=== PATIENT | female | born 1935 ===

== ENCOUNTER 2016-12-30 20:38 | Inpatient (IN) | payer OTHER ==
[~2016-12-30] VITALS: Ht 165.1 cm; Wt 96.4 kg
[2016-12-30 20:45] VITALS: BP 182/82; PULSE 74; TEMP 37; O2SAT 92; Ht 165.1 cm; Wt 96.4 kg
[2016-12-30] MEDS ORDERED: ASPCH81X PO (21:40)
[2016-12-30] MEDS ORDERED: LOSA1TAB38 PO (21:40)
[2016-12-30] MEDS ORDERED: SIMV20TA2 PO (21:40)
[2016-12-30] MEDS ORDERED: [UNRECOGNIZED DRUG - CODE] OR (21:40)
[2016-12-30] MEDS ORDERED: GLC/500 PO (21:40)
[2016-12-30] MEDS ORDERED: METO-217 PO (21:40)
[2016-12-30] MEDS ORDERED: PATIENT'S ALLERGY INFO NEEDS ENTERED SCH (22:15)
[2016-12-30] MEDS ORDERED: MECLIZINE HCL 25 MG TAB PO STA (22:34)
[2016-12-30] MEDS ORDERED: NURSING VERBAL MED ORDER ONE (23:00)
[2016-12-30 23:05] LABS: BASO % 0.2 %; BASO ABS # 0.02 K/uL (0-0.2); EOS % 0.1 %; HEMATOCRIT 38.2 % (37-47); IG% 0.3 %; LYMPH % 9.9 %; LYMPH ABS # 1.05 K/uL (1.2-3.4); MEAN CORPUSCULAR HEMOGLOBIN 32.1 pg (25-34); MEAN PLATELET VOLUME 9.4 fL (7.4-10.4); MONO % 7.9 %; NEUT % 81.6 %; PLATELET COUNT 198 K/uL (130-400); WHITE BLOOD COUNT 10.61 K/uL (4.8-10.8)
[2016-12-30 23:08] LABS: COMPLETE YES; MEAN CORPUSCULAR HGB CONC 35.3 g/dl (32-36)
[2016-12-30 23:15] LABS: INR 1.1 (0.9-1.1); PARTIAL THROMBOPLASTIN RATIO 0.9; PROTHROMBIN TIME (PATIENT) 11.3 SECONDS (9.0-12.0)
[2016-12-30 23:47] LABS: BUN/CREATININE RATIO 26.4 (10-20); CALCIUM 8.5 mg/dl (8.5-10.1); CREATININE 0.88 mg/dl (0.60-1.20); POTASSIUM 3.7 mmol/L (3.5-5.1)
[2016-12-30 23:49] LABS: THYROID STIMULATING HORMONE 0.563 uIu/ml (0.300-4.500)
[2016-12-31] VITALS (10 sets, daily range): BP systolic 162–188; BP diastolic 72–84; PULSE 64–78; TEMP 36.4–37.1; O2SAT 90–97
[2016-12-31] MEDS: SODIUM CHLORIDE 0.9% 1000ML 1,000 ML IV SCH ×3 (00:10→20:10)
[2016-12-31] MEDS ORDERED: GADAVIST IV PRN (01:45)
--- NOTE | 2016-12-31 03:48 | History and Physical ---
History & Physical Date & Time of Service: Dec 31, 2016 at 03:02 Chief Complaint: Stroke Primary Care Physician: No Doctor, Assigned History of Present Illness Source: patient, family (daughter) Mrs Goodwin is a very pleasant 81 year old female with diabetes, hyperlipidemia and hypertension who is a direct transfer from [facility] after discussion with Dr Gallardo for concern of a stroke with vertigo. She initially had new onset vertigo at home around 8am when she was sitting in the bathroom. Associated with nausea. The room was spinning and she felt so dizzy that she had to crawl around on the floor. She initially called for a PCP appointment but was advised to go to the ER. She was seen in [facility]. Blood glucose was 233. NIHSS score zero. CT head showed right greater than left inferior posterior lateral occipital lobe heterogeneous low-attenuation lesions , may represent ischemia/infarct. Clinical correlation recommended. Negative for intracranial acute hemorrhage or midline shift. Severe age related changes. She was a stroke call and discussed wit Dr Husain in [place] who advised admission and MRI neuro eval at a stroke center to be in the best interest for the patient. She was treated with zofran 4mg, ASA 325mg. LABS: Glucose 267, Na 132, K 4.0, Chloride 97, CO2 26, BUN 24, Cr 0.84, Ca 9.1, Anion 13, Osm 278, WBC 9.1, Hgb 14.3, HCT 43.1, MCV 93.8, Plt 201, Troponin < 0.01. She denies any hearing loss, vision loss, dysphasia, dysphagia, arm/leg weakness or numbness. Her vertigo is still present but is much better than when it first came on. She does note she hasn't been drinking as much in the past few days and has been feeling dehydrated. She has been looking after her sister at a mcc so has also been more active. She denies any chest pain, cough or shortness of breath. She denies any recent previous episodes like this although when she was a child she did have terrible motion sickness but not since then. Past Medical/Surgical History Hypertension Hyperlipidemia Diabetes Social History Smoking Status: Never Smoker Smokeless Tobacco Use: No Drug Use: none Housing status: lives alone Allergies Coded Allergies: No Known Allergies (Unverified , 12/30/16) Home Medications Scheduled Aspirin (Aspirin Chewable), 81 MG PO DAILY Hydrochlorothiazide (Hydrochlorothiazide), 25 MG OR DAILY Losartan Potassium (Cozaar), 1 TAB PO DAILY Metformin Hcl (Glucophage), 500 MG PO BID Metoprolol Succinate (Toprol Xl), 100 MG PO BID Simvastatin (Zocor), 20 MG PO QPM Review of Systems Constitutional: No chills, No fever, No sweats Eyes: No worsening of vision ENT: + problem reported (room spinning), No hearing loss, No nasal symptoms, No sore throat, No tinnitus, No trouble swallowing, No unusual epistaxis Respiratory: No cough, No dyspnea at rest, No dyspnea on exertion, No shortness of breath, No sputum, No wheezing Cardiovascular: + edema (unsure of cause, takes HCZT for this), No PND, No chest pain, No claudication, No orthopnea, No palpitations Abdomen: + nausea (now resolved), No constipation, No diarrhea, No pain, No vomiting Musculoskeletal: No joint pain, No muscle pain Genitourinary - Female: No dysuria, No urinary frequency, No urinary incontinence, No urinary retention, No urinary urgency Neurologic: + balance problems, + vertigo, No memory loss, No numbness/tingling , No weakness Psychiatric: No anxiety, No depression symptoms Endocrine: No fatigue Hematologic / Lymphatic: No abnormal bleeding/bruising Integumentary: No itch, No rash Physical Exam Vital Signs Date Time Temp Pulse Resp B/P Pulse Ox O2 Delivery O2 Flow Rate FiO2 12/31/16 00:30 95 2.0 12/31/16 00:00 90 Room Air 12/31/16 00:00 37.0 76 162/72 90 Room Air 12/30/16 20:45 37.0 74 16 182/82 92 Room Air General Appearance: WD/WN, no apparent distress Head: normocephalic, atraumatic Eyes: normal inspection, PERRL, EOMI (no nystagmus) Neck: supple, no JVD, no carotid bruits, trachea midline Respiratory/Chest: chest non-tender, lungs clear, no respiratory distress, no accessory muscle use, + crackles (left sided) Cardiovascular: regular rate, rhythm, + systolic murmur (soft early ejection LUSB) Abdomen/GI: normal bowel sounds, non tender, soft, no organomegaly Back: no CVA tenderness Extremities/Musculoskelatal: no calf tenderness, normal capillary refill, normal range of motion, non-tender, + pedal edema (3+ to knees) Neurologic/Psych: architectural manager II-XII nml as tested (vision grossly normal, PERRL, EOMI , no nystagmus, no facial numbness, no facial droop, hearing grossly intact, uvula central, swallowing intact, ), no motor/sensory deficits (upper and lower limbs, no dysdydokinesis, co-ordination intact upper and lower, no pronator drift), alert, normal mood/affect, oriented x 3 Skin: normal color, warm/dry, no rash Diagnostics Laboratory Results Results Past 24 Hours Test 12/30/16 21:04 12/30/16 22:39 12/30/16 22:50 Range/Units Bedside Glucose 144 70-90 mg/dl White Blood Count 10.61 4.8-10.8 K/uL Red Blood Count 4.20 4.2-5.4 M/uL Hemoglobin 13.5 12.0-16.0 g/dL Hematocrit 38.2 37-47 % Mean Corpuscular Volume 91.0 80-100 fL Mean Corpuscular Hemoglobin 32.1 25-34 pg Mean Corpuscular Hemoglobin Concent 35.3 32-36 g/dl Platelet Count 198 130-400 K/uL Mean Platelet Volume 9.4 7.4-10.4 fL Neutrophils (%) (Auto) 81.6 % Lymphocytes (%) (Auto) 9.9 % Monocytes (%) (Auto) 7.9 % Eosinophils (%) (Auto) 0.1 % Basophils (%) (Auto) 0.2 % Neutrophils # (Auto) 8.66 1.4-6.5 K/uL Lymphocytes # (Auto) 1.05 1.2-3.4 K/uL Monocytes # (Auto) 0.84 0.11-0.59 K/uL Eosinophils # (Auto) 0.01 0-0.5 K/uL Basophils # (Auto) 0.02 0-0.2 K/uL RDW Standard Deviation 41.2 36.4-46.3 fL RDW Coefficient of Variation 12.4 11.5-14.5 % Immature Granulocyte % (Auto) 0.3 % Immature Granulocyte # (Auto) 0.03 0.00-0.02 K/uL Prothrombin Time 11.3 9.0-12.0 SECONDS Prothromb Time International Ratio 1.1 0.9-1.1 Activated Partial Thromboplast Time 23.3 21.0-31.0 SECONDS Partial Thromboplastin Ratio 0.9 Sodium Level 137 136-145 mmol/L Potassium Level 3.7 3.5-5.1 mmol/L Chloride Level 98 98-107 mmol/L Carbon Dioxide Level 27 21-32 mmol/L Anion Gap 12.0 3-11 mmol/L Blood Urea Nitrogen 23 7-18 mg/dl Creatinine 0.88 0.60-1.20 mg/dl Est Creatinine Clear Calc Drug Dose 59.6 ml/min Estimated GFR () 72.4 Estimated GFR (Non- 62.5 BUN/Creatinine Ratio 26.4 10-20 Random Glucose 144 70-99 mg/dl Calcium Level 8.5 8.5-10.1 mg/dl Total Bilirubin 0.7 0.2-1 mg/dl Aspartate Amino Transf (AST/SGOT) 15 15-37 U/L Alanine Aminotransferase (ALT/SGPT) 21 12-78 U/L Alkaline Phosphatase 58 45-117 U/L Total Protein 6.7 6.4-8.2 gm/dl Albumin 3.4 3.4-5.0 gm/dl Globulin 3.3 2.5-4.0 gm/dl Albumin/Globulin Ratio 1.0 0.9-2 Thyroid Stimulating Hormone (TSH) 0.563 0.300-4.500 uIu/ml Impression Assessment and Plan 81 year old female with new onset vertigo and CT head changes in occipital lobe ?ischemia/infarct. Vertigo - suspect this is peripheral (likely vestibular neuritis) given no other vision changes on examination. However since CT head may represent ischemia/infarct and already discussed with Dr Husain in [place] will get MRI brain - Brain MRI to further assess possible ischemic changes. CT head imaging also sent to radiology for images to be uploaded. - Due to old stroke on MRI will add plavix to her regimen given she has been on ASA for many years and switch her simvastatin to atorvastatin 80mg, lipid profile in the morning. - HbA1C in morning to assess for diabetes control - Consult neurology - IVF 100 mls/HR for dehydration and UA to assess for glucose and ketones in urine +/- culture. If leg edema getting worse then stop IVF. - Give meclizine 25mg now for suspected peripheral vertigo cause, hold off steroids given her diabetes pending neurology consult. Left sided crackles on lung auscultation - sats 91% on room air - CXR one view in [facility] show left hilar/basal opacities - atelectasis vs. pneumonia - will reimage with 2 view CXR to assess for pneumonia. Given scoliosis however I suspect it is just harder to her to aerate the bottom of her left lung and will use incentive spirometer to reduce risk of pneumonia. Systolic murmur - echocardiogram - to assess for thromboemboli, valves and potential limiting flow that may have caused ischemia. Bilateral leg swelling - unclear etiology but most likely venous insufficiency or poor lymphatic drainage - CMP to assess for renal and liver function. Echo as above to assess for elevated right heart pressures. T2DM - hold metformin - BSG ACHS. Insulin Sliding Scale ACHS aim 110-140, 40 correction, no carb counting at present Hypertension - hold anti-hypertensives due to CVA rule out + dehydration VTE Prophylaxis - Lovenox 40 mg SQ daily Code - DNR as per patient wishes Disposition - admit to telemetry for rule out CVA, need to assess for atrial fibrillation Level of Care Telemetry Advanced Directives Existing Living Will: Yes Existing Power of Wastewater Manager: Yes Resuscitation Status DO NOT RESUSCITATE VTE Prophylaxis VTE Risk Assessment Done? Y/N: Yes Risk Level: Moderate Given or contraindicated: Enoxaparin (Lovenox)SQ, T.E.D. Stockings, SCD's Resident Tracking Resident Involvement: Resident Care Provided Care Provided: Adult Hospital Medicine Assessment and Plan Attending Addendum: I have physically seen and examined this patient, have directed their medical care, have supervised the medical residents activities, and agree with the H&P as noted above, with the following changes: NONE is The patient is awake, well-developed and adequately nourished, alert and oriented 3, normocephalic and atraumatic, lying in bed and in no acute distress. HEENT--PERRL, EOMI, mucous membranes and oropharynx dry. Neck--supple, no JVD or bruits, thyroid normal, trachea midline, no adenopathy. Heart--normal S1 and S2, systolic murmur, no rubs or gallops. Lungs--clear bilaterally with good air movement, no respiratory distress, no accessory muscle use. Abdomen--normal bowel sounds and soft, nontender and nondistended, no hernias or masses, no organomegaly. Extremities--no cyanosis, clubbing or edema. There are good distal pulses b/l. Dermatologic--normal skin turgor, normal color, warm and dry, no abnormal lymph nodes, no rash. Neurologic--cranial nerves II through XII grossly intact, motor and sensory examination normal. Rheumatologic--normal range of motion, nontender, muscles and joints. Psychiatric--normal affect. Next Possible Stroke-status post stroke alert/hypertension--patient will be admitted to the telemetry unit for rhythm watching in for 2-D echocardiogram with Dopplers. CT of the head suggested possible ischemia versus infarct in the occipital lobe. We have ordered an MRI the brain for further assessment. We will also consider MRI neck combo, an MRA of the head without contrast. She is mildly dehydrated, and will continue IV fluids 100 mils per hour. Permissive hypertension for now until stroke assessment. We'll hold HCTZ 25 mg by mouth daily and losartan daily. We'll continue metoprolol succinate 20 mg by mouth twice a day. Continue aspirin 81 mg chewable by mouth daily. Neurochecks every 4 hours for the first 12 hours. Diabetes mellitus-hold metformin, place on Accu-Cheks before meals and at bedtime with NovoLog coverage. Hypercholesterolemia--continue simvastatin 20 mg by mouth every afternoon.
[2016-12-31] MEDS ORDERED: GLUCOSE 10 TABS/TUBE PO PRN (04:30)
[2016-12-31] MEDS ORDERED: GLUCOSE 40% GEL 15 GM TUBE PO PRN (04:30)
[2016-12-31] MEDS ORDERED: DEXTROSE 50% 50 ML SYR IV PRN (04:30)
[2016-12-31] MEDS ORDERED: GLUCAGON FOR INJ 1 MG VIAL SQ PRN (04:30)
[2016-12-31 04:38] LABS: HEMATOCRIT 35.1 % (37-47); MEAN CELL VOLUME 91.4 fL (80-100); MEAN CORPUSCULAR HEMOGLOBIN 31.8 pg (25-34); MEAN CORPUSCULAR HGB CONC 34.8 g/dl (32-36); MEAN PLATELET VOLUME 9.3 fL (7.4-10.4); PLATELET COUNT 183 K/uL (130-400); RED BLOOD COUNT 3.84 M/uL (4.2-5.4); WHITE BLOOD COUNT 12.06 K/uL (4.8-10.8)
[2016-12-31 04:47] LABS: INR 1.1 (0.9-1.1); PROTHROMBIN TIME (PATIENT) 11.3 SECONDS (9.0-12.0)
[2016-12-31 04:54] LABS: CREATININE 0.9 mg/dl (0.60-1.20)
[2016-12-31 05:37] LABS: ESTIMATED AVERAGE GLUCOSE 166 mg/dl; HA1C FLAG Normal (Normal)
[2016-12-31] MEDS: INSULIN HUMAN REGULAR SC SCH ×4 (07:00→21:00)
--- NOTE | 2016-12-31 07:22 | DIAGNOSTIC IMAGING REPORT ---
MRI OF THE BRAIN COMBO CLINICAL HISTORY: Dizziness. COMPARISON STUDY: CT of the brain dated 12/30/2016. TECHNIQUE: MRI of the brain was performed utilizing various T1 and T2-weighted sequences in the axial, sagittal, and coronal planes. Contrast-enhanced sequences were acquired following the administration of 9.5 cc of Gadavist. The examination is degraded by motion artifact. 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 There is no hemorrhage or mass effect. There is no restricted diffusion to suggest acute ischemia. No enhancing mass lesion is identified on the postcontrast images. العلي-white matter differentiation is preserved. No extra-axial fluid collection is seen. The cerebellar tonsils are normal in configuration. Ventricles, sulci, and cisterns: Prominent secondary to involutional change. Pituitary and sella: Unremarkable. Intracranial vasculature: Normal flow voids are maintained at the skull base. Orbits: The bony orbits are grossly intact. Orbital contents are normal in appearance noting bilateral ocular lens implants. Sinuses and mastoids: Clear. Calvarium: Unremarkable. Cervical cord: Partially visualized cervical spinal cord is normal in morphology and signal intensity. IMPRESSION: Senescent changes as above with no hemorrhage, enhancing mass, or evidence of acute ischemia. Electronically signed by: Jai Baez M.D. 12/31/2016 7:21 AM Dictated Date/Time: 12/31/2016 7:18 AM
[2016-12-31 08:33] LABS: URINE APPEARANCE CLEAR (CLEAR); URINE BILIRUBIN NEG (NEG); URINE COLOR YELLOW; URINE NITRITE NEG (NEG); URINE PH 5.5 (4.5-7.5); URINE SPECIFIC GRAVITY 1.021 (1.000-1.030); UROBILINOGEN NEG (NEG); ZZUR CULT IF INDIC CLEAN CATCH NO
[2016-12-31 08:35] LABS: MANUAL MICROSCOPIC REQUIRED? NO; REVIEW REQ? NO; URINE EPITHELIAL CELL AUTO >30 /lpf (0-5)
[2016-12-31] MEDS ORDERED: METOPROLOL SUCC 50MG EXT REL TAB PO SCH (09:00)
[2016-12-31] MEDS ORDERED: ATORVASTATIN 40 MG TAB PO SCH (09:00)
[2016-12-31] MEDS: ENOXAPARIN 40 MG/0.4 ML SYR SC SCH (09:01)
[2016-12-31] MEDS: ASPIRIN 81 MG ECTAB PO SCH (09:02)
[2016-12-31] MEDS: CLOPIDOGREL BISULFATE 75 MG TAB PO SCH (09:02)
[2016-12-31 09:33] LABS: BUN/CREATININE RATIO 23.3 (10-20); CALCIUM 8.7 mg/dl (8.5-10.1); CREATININE 0.91 mg/dl (0.60-1.20); POTASSIUM 3.7 mmol/L (3.5-5.1)
--- NOTE | 2016-12-31 10:19 | DIAGNOSTIC IMAGING REPORT ---
CHEST 2 VIEWS ROUTINE CLINICAL HISTORY: left sided crackles STROKE COMPARISON STUDY: 12/30/2016 FINDINGS: There is a scoliosis. The heart is the upper limits of normal in size. There is a large hiatal hernia. There is basal interstitial thickening. There is no lobar consolidation.[ IMPRESSION: 1. Prominent scoliosis 2. Large hiatal hernia 3. Basilar interstitial thickening. No evidence of lobar consolidation. Electronically signed by: Jordan Barajas M.D. 12/31/2016 10:17 AM Dictated Date/Time: 12/31/2016 10:17 AM
[2016-12-31 10:32] LABS: CHOLESTEROL/HDL RATIO 2.9
--- NOTE | 2016-12-31 12:41 | ECHOCARDIOGRAM REPORT ---
*NOTICE TO RECEIVING [employer]Y This information is strictly Confidential and protected under [place] law. [place] law prohibits you from making any further disclosure of this information unless further disclosure is expressly permitted by the written consent of the person to whom it pertains or is authorized by law. A general authorization for the release of medical or other information is not sufficient for this purpose. Hospital accepts no responsibility if the information is made available to any other person, INCLUDING THE PATIENT. Interpretation Summary * Name: MERRITT GARCIA Study Date: 12/31/2016 08:03 AM BP: 168/79 mmHg * Patient Location: .2T\S\E218\S\1 HR: 70 * : 1935 (M/d/yyy) Gender: Female Height: 65 in * Age: 81 yrs Ethnicity: [place] Weight: 212 lb * Ordering Physician: Maximiliano Jordan * Referring Physician: Carmelo Albright * Performed By: Kayley Monsivais RDCS * * Reason For Study: CEREBRAL ISCHEMIA/EMBOLUS, LEG SWELLING * BSA: 2.0 m2 * History: CEREBRAL ISCHEMIA/EMBOLUS * -- Conclusions -- * Left ventricular systolic function is normal. * No regional wall motion abnormalities noted. * Ejection Fraction = 60-65%. * Diastolic dysfunction, Grade II (pseudonormalization pattern). * Injection of contrast documented no interatrial shunt. Procedure Details * A saline contrast injection was performed to assess for cardiac shunting. * The injection was performed through an intravenous line in the right arm. * The attending nurse who injected the saline contrast was LENI PINK RN. * A total of 20 cc of agitated saline was given. Left Ventricle * The left ventricle is normal in size. * There is normal left ventricular wall thickness. * Ejection Fraction = 60-65%. * Left ventricular systolic function is normal. * No regional wall motion abnormalities noted. Right Ventricle * The right ventricle is grossly normal size. * The right ventricular systolic function is normal as assessed by tricuspid annular plane systolic excursion (TAPSE) (normal >1.5 cm). Atria * The left atrium is mildly dilated. * Right atrial size is normal. * Injection of contrast documented no interatrial shunt. Mitral Valve * The mitral valve is grossly normal. * There is no mitral valve stenosis. * Significant mitral regurgitation is absent. Tricuspid Valve * The tricuspid valve is not well visualized, but is grossly normal. * There is no tricuspid stenosis. * Significant tricuspid regurgitation is absent. Aortic Valve * The aortic valve is not well visualized. * The aortic valve opens well. * No hemodynamically significant valvular aortic stenosis. * No aortic regurgitation is present. Pulmonic Valve * The pulmonary valve is not well seen, but the Doppler examination is normal without significant regurgitation or stenosis. * There is no significant pulmonary regurgitation. Great Vessels * The aortic root is normal size. * The pulmonary is not well visualized. Pericardium/Pleural * There is no pericardial effusion. Great Vessels * Normal inferior vena cava size and collapsability with sniff indicates a normal right atrial pressure of 3 mmHg Left Ventricular Diastolic Function * Diastolic dysfunction, Grade II (pseudonormalization pattern). MMode 2D Measurements and Calculations IVSd 1.4 cm IVSs 1.7 cm LVIDd 3.5 cm LVIDs 2.6 cm LVPWd 1.2 cm LVPWs 1.8 cm IVS/LVPW 1.2 FS 27.1 % EDV(Teich) 50.9 ml ESV(Teich) 23.5 ml EF(Teich) 53.8 % EDV(cubed) 42.9 ml ESV(cubed) 16.6 ml EF(cubed) 61.2 % % IVS thick 21.7 % % LVPW thick 52.8 % LV mass(C)d 157.5 grams LV mass(C)dI 77.7 grams/m\S\2 LV mass(C)s 179.4 grams LV mass(C)sI 88.5 grams/m\S\2 SV(Teich) 27.4 ml SI(Teich) 13.5 ml/m\S\2 SV(cubed) 26.3 ml SI(cubed) 13.0 ml/m\S\2 LA dimension 4.7 cm LVAd ap4 19.5 cm\S\2 LVLd ap4 6.4 cm EDV(MOD-sp4) 48.6 ml EDV(sp4-el) 50.3 ml LVAs ap4 13.4 cm\S\2 LVLs ap4 6.4 cm ESV(MOD-sp4) 23.1 ml ESV(sp4-el) 23.6 ml EF(MOD-sp4) 52.4 % EF(sp4-el) 53.1 % LVAd ap2 20.9 cm\S\2 LVLd ap2 7.5 cm EDV(MOD-sp2) 50.2 ml EDV(sp2-el) 49.5 ml LVAs ap2 12.7 cm\S\2 LVLs ap2 6.3 cm ESV(MOD-sp2) 22.0 ml ESV(sp2-el) 21.8 ml EF(MOD-sp2) 56.3 % EF(sp2-el) 55.9 % LVLd %diff 14.2 % EDV(MOD-bp) 52.9 ml LVLs %diff -1.70 % ESV(MOD-bp) 22.3 ml EF(MOD-bp) 57.8 % SV(MOD-sp4) 25.4 ml SI(MOD-sp4) 12.6 ml/m\S\2 SV(MOD-sp2) 28.2 ml SI(MOD-sp2) 13.9 ml/m\S\2 SV(MOD-bp) 30.6 ml SI(MOD-bp) 15.1 ml/m\S\2 SV(sp4-el) 26.7 ml SI(sp4-el) 13.2 ml/m\S\2 SV(sp2-el) 27.7 ml SI(sp2-el) 13.7 ml/m\S\2 Doppler Measurements and Calculations MV E max nicole 136.3 cm/sec MV A max nicole 96.0 cm/sec MV E/A 1.4 MV dec time 0.17 sec Ao V2 max 170.3 cm/sec Ao max PG 11.6 mmHg Ao max PG (full) 1.5 mmHg LV V1 max PG 10.1 mmHg LV V1 max 159.1 cm/sec TR max nicole 306.1 cm/sec
--- NOTE | 2016-12-31 13:45 | Clinical Documentation Query ---
CLINICAL DOCUMENTATION QUERY Dr. BRONSON In your clinical opinion is this patient being managed for: ( ) Dehydration possibly causing vertigo ( x ) Other explanation of clinical findings (Please Explain) - vasovagal dizziness ( ) Unable to determine (Please Define) ( ) Need to Discuss ( ) Not Agree The medical record reflects the following clinical findings, treatment, and risk factors. Clinical Indicators: 81 yo female presenting from [facility] with concern for stroke with vertigo. Pt reported she had not been drinking much over the past few days. Initial BUN 23 and is trending down, currently 21 Treatment: IV fluids, Brain MRI, hold antihypertensives Risk Factors: age, decreased po intake, DM Please clarify and document your clinical opinion in the progress notes and discharge summary. Terms such as "probable", "suspected", "likely", "questionable", "possible", or "still to be ruled out" are acceptable. IF IN AGREEMENT, YOU MUST DOCUMENT ABOVE DIAGNOSTIC STATEMENT IN DAILY PROGRESS NOTES AND DISCHARGE SUMMARY. This document is not part of the patient's record. Thank You, Kathy Martinez RN [phone]
--- NOTE | 2016-12-31 16:37 | Family Medicine Progress Note ---
Progress Note Date of Service Dec 31, 2016. Subjective Pt evaluation today including: conversation w/ patient, conversation w/ family , physical exam, chart review, lab review, review of studies Pain: 0/10 PO Intake: WNL Voiding: no voiding problems Patient is doing well this morning, states that the vertigo sensation has resolved Patient states she does not feel safe to go home and daughter agrees, would like placement to SNF close to home Constitutional: No fever Eyes: No worsening of vision ENT: No hearing loss Respiratory: No cough, No dyspnea on exertion, No shortness of breath, No sputum, No wheezing Cardiovascular: No chest pain Abdomen: No constipation, No diarrhea, No nausea, No pain, No vomiting Musculoskeletal: No joint pain, No muscle pain Neurologic: No balance problems, No numbness/tingling, No weakness Psychiatric: No depression symptoms Endo: No fatigue Skin: No rash Medications Medications Administered Medications (Trade) Dose Ordered Sig/Luis Route Start Time Stop Time Status Last Admin Dose Admin Enoxaparin Sodium (Lovenox Inj) 40 mg Q24H SC 12/31/16 09:00 01/30/17 08:59 12/31/16 09:01 40 MG Meclizine HCl (Antivert Tab) 25 mg NOW STAT PO 12/30/16 22:34 12/30/16 22:51 DC 12/31/16 00:05 25 MG Aspirin 81 mg 81 mg QAM PO 12/31/16 09:00 01/30/17 08:59 12/31/16 09:02 81 MG Sodium Chloride (Nss 1000ml) 1,000 ml @ 100 mls/hr Q10H IV 12/30/16 23:00 01/29/17 22:59 12/31/16 09:03 100 MLS/HR Insulin Human Regular (novoLIN-R) SLIDING SCALE PARAMETERS ACHS SC 12/31/16 07:00 01/30/17 06:59 12/31/16 12:10 1 UNITS Atorvastatin Calcium (Lipitor Tab) 40 mg QAM PO 12/31/16 09:00 01/30/17 08:59 12/31/16 09:02 40 MG Clopidogrel Bisulfate (plAVix TAB) 75 mg QAM PO 12/31/16 09:00 01/30/17 08:59 12/31/16 09:02 75 MG Objective Vital Signs Date Time Temp Pulse Resp B/P Pulse Ox O2 Delivery O2 Flow Rate FiO2 12/31/16 15:15 36.4 64 20 171/79 96 Room Air 12/31/16 12:43 76 97 12/31/16 12:00 Room Air 12/31/16 11:42 37.0 72 20 173/80 97 Nasal Cannula 2.0 12/31/16 08:00 Nasal Cannula 2.0 12/31/16 07:51 37.1 70 20 168/79 96 Nasal Cannula 2.0 12/31/16 04:02 36.8 70 20 169/80 96 Nasal Cannula 2.0 12/31/16 04:00 96 Nasal Cannula 2.0 12/31/16 04:00 96 Nasal Cannula 2.0 12/31/16 00:30 95 2.0 12/31/16 00:00 90 Room Air 12/31/16 00:00 37.0 76 162/72 90 Room Air 12/30/16 20:45 37.0 74 16 182/82 92 Room Air Physical Exam General Appearance: WD/WN, no apparent distress Eyes: normal inspection ENT: normal ENT inspection Neck: supple Respiratory/Chest: lungs clear, normal breath sounds, no respiratory distress, no accessory muscle use Cardiovascular: regular rate, rhythm, no murmur Abdomen: normal bowel sounds, non tender, soft Extremities: non-tender, normal inspection, no pedal edema, no calf tenderness Neurologic/Psychiatric: alert, normal mood/affect, oriented x 3 Skin: normal color, warm/dry, no rash Lymphatic: no adenopathy Laboratory Results Results Past 24 Hours Test 12/30/16 21:04 12/30/16 22:50 12/31/16 04:29 12/31/16 06:38 Range/Units Bedside Glucose 144 115 70-90 mg/dl White Blood Count 10.61 12.06 4.8-10.8 K/uL Red Blood Count 4.20 3.84 4.2-5.4 M/uL Hemoglobin 13.5 12.2 12.0-16.0 g/dL Hematocrit 38.2 35.1 37-47 % Mean Corpuscular Volume 91.0 91.4 80-100 fL Mean Corpuscular Hemoglobin 32.1 31.8 25-34 pg Mean Corpuscular Hemoglobin Concent 35.3 34.8 32-36 g/dl Platelet Count 198 183 130-400 K/uL Mean Platelet Volume 9.4 9.3 7.4-10.4 fL Neutrophils (%) (Auto) 81.6 % Lymphocytes (%) (Auto) 9.9 % Monocytes (%) (Auto) 7.9 % Eosinophils (%) (Auto) 0.1 % Basophils (%) (Auto) 0.2 % Neutrophils # (Auto) 8.66 1.4-6.5 K/uL Lymphocytes # (Auto) 1.05 1.2-3.4 K/uL Monocytes # (Auto) 0.84 0.11-0.59 K/uL Eosinophils # (Auto) 0.01 0-0.5 K/uL Basophils # (Auto) 0.02 0-0.2 K/uL RDW Standard Deviation 41.2 41.6 36.4-46.3 fL RDW Coefficient of Variation 12.4 12.4 11.5-14.5 % Immature Granulocyte % (Auto) 0.3 % Immature Granulocyte # (Auto) 0.03 0.00-0.02 K/uL Prothrombin Time 11.3 11.3 9.0-12.0 SECONDS Prothromb Time International Ratio 1.1 1.1 0.9-1.1 Activated Partial Thromboplast Time 23.3 21.0-31.0 SECONDS Partial Thromboplastin Ratio 0.9 Sodium Level 137 136-145 mmol/L Potassium Level 3.7 3.5-5.1 mmol/L Chloride Level 98 98-107 mmol/L Carbon Dioxide Level 27 21-32 mmol/L Anion Gap 12.0 3-11 mmol/L Blood Urea Nitrogen 23 7-18 mg/dl Creatinine 0.88 0.90 0.60-1.20 mg/dl Est Creatinine Clear Calc Drug Dose 59.6 58.3 ml/min Estimated GFR () 72.4 70.5 Estimated GFR (Non- 62.5 60.8 BUN/Creatinine Ratio 26.4 10-20 Random Glucose 144 70-99 mg/dl Calcium Level 8.5 8.5-10.1 mg/dl Total Bilirubin 0.7 0.2-1 mg/dl Aspartate Amino Transf (AST/SGOT) 15 15-37 U/L Alanine Aminotransferase (ALT/SGPT) 21 12-78 U/L Alkaline Phosphatase 58 45-117 U/L Total Protein 6.7 6.4-8.2 gm/dl Albumin 3.4 3.4-5.0 gm/dl Globulin 3.3 2.5-4.0 gm/dl Albumin/Globulin Ratio 1.0 0.9-2 Thyroid Stimulating Hormone (TSH) 0.563 0.300-4.500 uIu/ml Estimated Average Glucose 166 mg/dl Hemoglobin A1c 7.4 4.5-5.6 % Triglycerides Level 84 0-150 mg/dl Cholesterol Level 136 0-200 mg/dl HDL Cholesterol 47 mg/dl LDL Cholesterol, Calculated 72 mg/dl VLDL Cholesterol, Calculated 17 mg/dl Cholesterol/HDL Ratio 2.9 Test 12/31/16 08:00 12/31/16 08:54 12/31/16 11:02 12/31/16 15:54 Range/Units Urine Color YELLOW Urine Appearance CLEAR CLEAR Urine pH 5.5 4.5-7.5 Urine Specific [place] 1.021 1.000-1.030 Urine Protein NEG NEG Urine Glucose (UA) 2+ NEG Urine Ketones NEG NEG Urine Occult Blood NEG NEG Urine Nitrite NEG NEG Urine Bilirubin NEG NEG Urine Urobilinogen NEG NEG Urine Leukocyte Esterase NEG NEG Urine WBC (Auto) 1-5 0-5 /hpf Urine RBC (Auto) 5-10 0-4 /hpf Urine Hyaline Casts (Auto) 1-5 0-5 /lpf Urine Epithelial Cells (Auto) >30 0-5 /lpf Urine Bacteria (Auto) NEG NEG Sodium Level 136 136-145 mmol/L Potassium Level 3.7 3.5-5.1 mmol/L Chloride Level 100 98-107 mmol/L Carbon Dioxide Level 27 21-32 mmol/L Anion Gap 9.0 3-11 mmol/L Blood Urea Nitrogen 21 7-18 mg/dl Creatinine 0.91 0.60-1.20 mg/dl Est Creatinine Clear Calc Drug Dose 57.6 ml/min Estimated GFR () 69.5 Estimated GFR (Non- 60.0 BUN/Creatinine Ratio 23.3 10-20 Random Glucose 179 70-99 mg/dl Calcium Level 8.7 8.5-10.1 mg/dl Bedside Glucose 160 114 70-90 mg/dl Assessment and Plan 81 year old female with new onset vertigo and CT head changes in occipital lobe ?ischemia/infarct. When reviewing the MRI there is no acute changes noted and after discussing the case with neurology the patient most likely suffering from an inner ear cause of vertigo. ? Vertigo secondary to dehydration vs vasovagal episode - patient stated that she was going to the bathroom during this episode so there is thoughts that this may be vasovagal - Brain MRI did not reveal ischemic changes. CT head imaging also sent to radiology for images to be uploaded. - hold plavix for now, added on admission - ASA cont - as FLP is WNL will not change simvastatin at this time - HbA1C - 7.4% - Give meclizine 25mg now for suspected peripheral vertigo cause Left sided crackles on lung auscultation - sats 96 from 91% - no consolidation noted on CXR Systolic murmur - echocardiogram - t - 60-65% - grade II diastolic murmur - LV function WNL - no regional wall abn T2DM - hold metformin - BSG ACHS. Insulin Sliding Scale ACHS aim 110-140, 40 correction, no carb counting at present Hypertension - restart antihypertensives as not a stroke VTE Prophylaxis - Lovenox 40 mg SQ daily Code - DNR as per patient wishes Disposition - admit to telemetry for rule out CVA, need to assess for atrial fibrillation - plan is d/c on tuesday to SNF Continued [facility] stay due to: other [facility] planning[facility] Reviewed: Pt Seen/Exam by Me History no more dizziness/vertigo Constitutional: denies: fever Respiratory: negative: short of breath Cardiovascular: denies chest pain Gastrointestinal/Abdominal: negative: abdominal pain General Appearance: no apparent distress Respiratory: lungs clear, no respiratory distress Cardiovascular: regular rate, rhythm Gastrointestinal: normal bowel sounds, non tender, soft Neurologic/Psychiatric: alert, oriented x 3 Skin Characteristics: warm/dry Assessment/Plan I have reviewed the medical record and performed a history and physical examination of this patient today. I have discussed the case with Dr. Guzman. The above note reflects my findings, conclusions, and recommendations.
[2016-12-31] MEDS ORDERED: HYDROCHLOROTHIAZIDE 25 MG TAB PO STA (16:58)
[2016-12-31] MEDS ORDERED: LOSARTAN POTASSIUM 50 MG TAB PO STA (17:01)
[2016-12-31] MEDS ORDERED: SIMVASTATIN 20 MG TAB PO SCH (21:00)
[2016-12-31] MEDS: SIMVASTATIN 20 MG TAB PO SCH (21:07)
[2017-01-01] VITALS (9 sets, daily range): BP systolic 161–185; BP diastolic 72–87; PULSE 72–103; TEMP 36.6–37.3; O2SAT 91–94
[2017-01-01] MEDS: SODIUM CHLORIDE 0.9% 1000ML 1,000 ML IV SCH (05:26)
[2017-01-01] MEDS: INSULIN HUMAN REGULAR SC SCH ×4 (07:00→21:00)
[2017-01-01] MEDS: ENOXAPARIN 40 MG/0.4 ML SYR SC SCH (08:12)
[2017-01-01] MEDS: LOSARTAN POTASSIUM 50 MG TAB PO SCH (08:13)
[2017-01-01] MEDS: CLOPIDOGREL BISULFATE 75 MG TAB PO SCH (08:13)
[2017-01-01] MEDS: HYDROCHLOROTHIAZIDE 25 MG TAB PO SCH (08:13)
[2017-01-01] MEDS: ASPIRIN 81 MG ECTAB PO SCH (08:13)
[2017-01-01] MEDS ORDERED: AMLODIPINE BESYLATE 5 MG TAB PO ONE (09:26)
--- NOTE | 2017-01-01 13:12 | Progress Note ---
Subjective Date of Service: Jan 01, 2017. Problem List feeling much better this am. Review of Systems Constitutional: No fever Respiratory: No shortness of breath Cardiac: No chest pain Abdomen: No nausea, No pain Objective Vital Signs Date Time Temp Pulse Resp B/P Pulse Ox O2 Delivery O2 Flow Rate FiO2 01/01/17 10:50 36.6 82 18 185/78 92 Room Air 01/01/17 10:50 92 Room Air 01/01/17 10:20 36.8 76 18 94 2.0 01/01/17 08:07 36.8 76 18 182/82 94 Room Air 01/01/17 08:00 Room Air 01/01/17 04:00 94 Nasal Cannula 2.0 01/01/17 04:00 36.8 76 16 164/77 94 Nasal Cannula 2.0 01/01/17 00:00 37.3 72 20 166/75 94 Nasal Cannula 2.0 01/01/17 00:00 94 Nasal Cannula 2.0 12/31/16 20:00 92 Room Air 12/31/16 19:17 37.0 78 18 183/83 92 Room Air 12/31/16 15:15 36.4 64 20 171/79 96 Room Air Physical Exam General Appearance: no apparent distress Respiratory/Chest: lungs clear, no respiratory distress Cardiovascular: regular rate, rhythm Abdomen: normal bowel sounds, non tender, soft Neurologic/Psychiatric: no motor/sensory deficits, alert, oriented x 3 Skin: warm/dry Laboratory Results Last 24 Hours Test 12/31/16 15:54 12/31/16 20:15 01/01/17 06:42 01/01/17 11:23 Bedside Glucose 114 mg/dl 132 mg/dl 120 mg/dl 121 mg/dl Assessment and Plan 81 year old female with new onset vertigo and CT head changes in occipital lobe ?ischemia/infarct. When reviewing the MRI there is no acute changes noted and after discussing the case with neurology the patient most likely suffering from an inner ear cause of vertigo. ? Vertigo secondary to dehydration vs vasovagal episode - patient stated that she was going to the bathroom during this episode so there is thoughts that this may be vasovagal - Brain MRI did not reveal ischemic changes. CT head imaging also sent to radiology for images to be uploaded. - hold plavix for now, added on admission - ASA cont - as FLP is WNL will not change simvastatin at this time - HbA1C - 7.4% - received one dose of meclizine 25mg on admission. - vertigo much improved Left sided crackles on lung auscultation - pulse ox normal. - no consolidation noted on CXR Systolic murmur - echocardiogram - - 60-65% - grade II diastolic murmur - LV function WNL - no regional wall abn T2DM - holding metformin - BSG ACHS. Insulin Sliding Scale ACHS aim 110-140, 40 correction, no carb counting at present - A1c 7.4 Hypertension - uncontrolled. - continue losartan at increased dose 100mgs (was on 50mgs at home), hctz - add amlodipine - check nocturnal pulse oximetry. consider outpatient sleep study. VTE Prophylaxis - Lovenox 40 mg SQ daily Code - DNR as per patient wishes Disposition - plan is d/c on tuesday to SNF Discharge planning: long-term facility
[2017-01-01] MEDS: SIMVASTATIN 20 MG TAB PO SCH (21:43)
[2017-01-02] VITALS: O2SAT 91
[2017-01-02] MEDS: HYDROCHLOROTHIAZIDE 25 MG TAB PO SCH (05:04)
[2017-01-02] MEDS: LOSARTAN POTASSIUM 50 MG TAB PO SCH (05:04)
[2017-01-02 05:15] VITALS: BP_SYST 177
[2017-01-02 05:16] VITALS: BP 177/84; O2SAT 92
[2017-01-02] MEDS: INSULIN HUMAN REGULAR SC SCH (06:30)
[2017-01-02 06:54] VITALS: BP 161/83; PULSE 89; TEMP 36.7; O2SAT 92
[2017-01-02] MEDS: CLOPIDOGREL BISULFATE 75 MG TAB PO SCH (07:55)
[2017-01-02] MEDS: ENOXAPARIN 40 MG/0.4 ML SYR SC SCH (08:00)
[2017-01-02] MEDS ORDERED: AMLODIPINE BESYLATE 5 MG TAB PO SCH (08:00)
[2017-01-02] MEDS ORDERED: NRV5 PO (08:48)
[2017-01-02 08:50] VITALS: BP 161/83; PULSE 89; TEMP 36.7; O2SAT 92
--- NOTE | 2017-01-02 08:51 | Discharge Instructions ---
Discharge Instructions Date of Service Jan 02, 2017. Admission Reason for Admission: Stroke Discharge Discharge Diagnosis / Problem: Vertigo secondary to labyrinthitis/? dehydration Discharge Goals Goal(s): Improve function Activity Recommendations Activity Level: Assistance Required Therapies: Physical Therapy, Occupational Therapy . Additional Information Patient informed of condition: Yes Advance Directives: Yes DNR: Yes Level of Care: Skilled Communicable Disease: No Prognosis: Stable Instructions / Follow-Up Instructions / Follow-Up Follow up with family physician after discharge from [facility] Current Hospital Diet Patient's current hospital diet: Diabetes Type 2 Diet Discharge Diet Recommended Diet: AHA Diet (Heart Healthy), Diabetes Type 2 Diet Pending Studies Studies pending at discharge: no Physician Orders On Transfer Additional Orders: Patient may have sleep apnea contributing to elevated blood pressure - Please consider nocturnal pulse oximetry while at [facility] and consider arranging sleep study after discharge Laboratory Results Hemoglobin A1c Test 12/31/16 04:29 Range/Units Estimated Average Glucose 166 mg/dl Hemoglobin A1c 7.4 H 4.5-5.6 % Lipid Panel Test 12/31/16 04:29 Range/Units Triglycerides Level 84 0-150 mg/dl Cholesterol Level 136 0-200 mg/dl HDL Cholesterol 47 mg/dl Cholesterol/HDL Ratio 2.9 LDL Cholesterol, Calculated 72 mg/dl Medical Emergencies . Who to Call and When: Medical Emergencies: If at any time you feel your situation is an emergency, please call 911 immediately. . Non-Emergent Contact Non-Emergency issues call your: Primary Care Provider . . "Provider Documentation" section prepared by Elisha Orantes. Core Measure Problem Core Measures: None
--- NOTE | 2017-01-02 15:22 | Discharge Summary ---
Discharge Summary Date of Service Jan 02, 2017. Discharge Summary Admission Date: Dec 30, 2016 at 20:38 Discharge Date: Jan 02, 2017 Discharge Disposition: [facility] facility Principal Diagnosis: Vertigo ruled out for stroke Medication Reconciliation New Medications: Amlodipine Besylate (Amlodipine Besylate) 5 Mg Tab 10 MG PO QAM for 30 Days, #30 TAB Continued Medications: Aspirin (Aspirin Chewable) 81 Mg Chew 81 MG PO DAILY Hydrochlorothiazide (Hydrochlorothiazide) 1 Pow Pow 25 MG OR DAILY Losartan Potassium (Cozaar) 100 Mg Tab 1 TAB PO DAILY for 30 Days, #30 TAB 5 Refills Metformin Hcl (Glucophage) 500 Mg Tab 500 MG PO BID, TAB Metoprolol Succinate (Toprol Xl) 50 Mg Tabcr 100 MG PO BID, #30 TAB Simvastatin (Zocor) 20 Mg Tab 20 MG PO QPM, TAB Discharge Exam Last Resulted CBC 12/31/16 04:29 Last Resulted BMP 12/31/16 08:54 Last 24 Hours Test 01/01/17 16:30 01/01/17 20:08 01/02/17 07:35 Bedside Glucose 143 mg/dl 211 mg/dl 146 mg/dl MRI OF THE BRAIN COMBO CLINICAL HISTORY: Dizziness. COMPARISON STUDY: CT of the brain dated 12/30/2016. TECHNIQUE: MRI of the brain was performed utilizing various T1 and T2-weighted sequences in the axial, sagittal, and coronal planes. Contrast-enhanced sequences were acquired following the administration of 9.5 cc of Gadavist. The examination is degraded by motion artifact. 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 There is no hemorrhage or mass effect. There is no restricted diffusion to suggest acute ischemia. No enhancing mass lesion is identified on the postcontrast images. العلي-white matter differentiation is preserved. No extra-axial fluid collection is seen. The cerebellar tonsils are normal in configuration. Ventricles, sulci, and cisterns: Prominent secondary to involutional change. Pituitary and sella: Unremarkable. Intracranial vasculature: Normal flow voids are maintained at the skull base. Orbits: The bony orbits are grossly intact. Orbital contents are normal in appearance noting bilateral ocular lens implants. Sinuses and mastoids: Clear. Calvarium: Unremarkable. Cervical cord: Partially visualized cervical spinal cord is normal in morphology and signal intensity. IMPRESSION: Senescent changes as above with no hemorrhage, enhancing mass, or evidence of acute ischemia. Review of Systems: Constitutional: No fever Respiratory: No shortness of breath Cardiovascular: No chest pain Abdomen: No nausea, No pain, No vomiting Neurologic: No numbness/tingling, No paralysis, No vertigo, No weakness Physical Exam: General Appearance: no apparent distress Respiratory/Chest: lungs clear, no respiratory distress Cardiovascular: regular rate, rhythm Abdomen / GI: normal bowel sounds, non tender, soft Neurologic/Psychiatric: alert, oriented x 3 Skin: warm/dry Hospital Course 81 year old female with new onset vertigo and CT head changes in occipital lobe ?ischemia/infarct. When reviewing the MRI there is no acute changes noted and after discussing the case with neurology the patient most likely suffering from an inner ear cause of vertigo. ? Vertigo secondary to dehydration vs vasovagal episode vs labyrinthitis - patient stated that she was going to the bathroom during this episode so there is thoughts that this may be vasovagal - Brain MRI did not reveal ischemic changes. - continued ASA - as FLP is WNL will not change simvastatin at this time - HbA1C - 7.4% - received one dose of meclizine 25mg on admission. - vertigo much improved Systolic murmur - echocardiogram - - 60-65% - grade II diastolic murmur - LV function WNL - no regional wall abn T2DM - resumed metformin on discharge - A1c 7.4 Hypertension - uncontrolled. - continued losartan 100mgs (was on 50mgs at home), hctz - added amlodipine - consider checking nocturnal pulse oximetry. consider outpatient sleep study. Discharged to [facility] for rehab Total Time Spent: Greater than 30 minutes This includes examination of the patient, discharge planning, medication reconciliation, and communication with other providers. Discharge Instructions Please refer to the electronic Patient Visit Report (Discharge Instructions) for additional information. Additional Copies To Matthieu More M.D.
== END 2017-01-02 09:37 | DRG 149 ==
LOC: ENRESERVTM → ENRESERVDT → C.2T 20:38 → C.4E 01-01 09:28
PROVIDERS: ADMIT Hospitalist; ATTEND Family Medicine
DX: H81.399 Other peripheral vertigo, unspecified ear (principal); E86.0 Dehydration; H83.09 Labyrinthitis, unspecified ear; Z66 Do not resuscitate; R01.1 Cardiac murmur, unspecified; E11.9 Type 2 diabetes mellitus without complications; E78.5 Hyperlipidemia, unspecified; I10 Essential (primary) hypertension; Z79.82 Long term (current) use of aspirin; Z79.899 Other long term (current) drug therapy